=== PATIENT | female | born 1970 | race Caucasian/White ===

== ENCOUNTER → 2022-02-02 | Outpatient (CLI) | payer OTHER | LOC: M WUC 15:45 | PROVIDERS: ATTEND Registered Nurse | DX: R07.89 Other chest pain (principal); M25.512 Pain in left shoulder ==

== ENCOUNTER 2022-10-13 10:42 | Day surgery (SDC) | payer OTHER ==
[~2022-10-13] VITALS: Ht 170.2 cm; Wt 78.0 kg
[~2022-10-13 10:42] MED LIST: LOSA50TA28 PO; NS 1,000 ML IV ONE
[2022-10-13] MEDS ORDERED: propofoL 200 MG/20 ML VIAL As Ordered ONE (11:56)
[2022-10-13] MEDS ORDERED: LIDOCAINE 2% 100MG/5ML SDV (FOR ANES.) As Ordered ONE (11:57)
[2022-10-13 13:08] VITALS: BP 106/63; O2SAT 99
== END 2022-10-13 13:10 | disposition home or self-care (01) ==
LOC: M OPP 10:42
PROVIDERS: ATTEND Internal Medicine Gastroenterology
DX: Z12.11 Encounter for screening for malignant neoplasm of colon (principal); K64.0 First degree hemorrhoids; I10 Essential (primary) hypertension; G43.909 Migraine, unspecified, not intractable, without status migrainosus; Z79.899 Other long term (current) drug therapy

== ENCOUNTER → 2023-04-13 | Outpatient (REF) | payer OTHER ==
[~2023-04-13] MED LIST changes: -NS 1,000 ML IV ONE
[2023-04-13 13:27] LABS: HCG, SERUM QUALITATIVE NEGATIVE (NEGATIVE)
== END ==
LOC: M LAB REF 12:10
PROVIDERS: ATTEND Nurse Practitioner Family
DX: R10.30 Lower abdominal pain, unspecified (principal)

== ENCOUNTER → 2023-04-14 | Outpatient (CLI) | payer OTHER ==
[~2023-04-14] MED LIST changes: +GASTROGRAFIN SOLUTION 30ML As Ordered ONE; +ISOVUE-370 76% 100ML VIAL As Ordered ONE
== END ==
LOC: M RAD 12:26
PROVIDERS: ATTEND Nurse Practitioner Family
DX: N83.291 Other ovarian cyst, right side (principal)
CPT/HCPCS: 74177; Q9963; Q9967